=== PATIENT | female | born 1970 | race Caucasian/White ===

== ENCOUNTER → 2019-08-04 | Day surgery (SDC) | payer BC ==
[2019-08-02 08:20] VITALS: BMI 30.8
[~2019-08-04] MED LIST: LACTATED RINGERS 1,000 ML IV ONE; LACTATED RINGERS 1,000 ML IV SCH; LIDOCAINE 1% 20 ML VIAL (10MG/ML) FOR IV START INTRADERMA PRN; LIDOCAINE 1% INJ 10MG/ML (20 ML MDV) ONE; ONDANSETRON 4 MG/2 ML VIAL IVP ONE; PROPOFOL 10 MG/ML 20 ML VIAL IV ONE
[2019-08-04 10:23] VITALS: TEMP 97.7
--- NOTE | 2019-08-04 11:25 | P.PCN ---
Date of Procedure: 08/04/19 Procedure(s) Performed: Brief history: Patient is a pleasant 49-year-old white female scheduled for an elective upper endoscopy as well as colonoscopy as a part of evaluation of right-sided abdominal pain and change in bowel habits. Procedure performed: Esophagogastroduodenoscopy with biopsy Colonoscopy Preoperative diagnosis: Right-sided abdominal pain Change in bowel habits Anesthesia: MAC Procedure: After informed consent was obtained from the patient was brought into the endoscopy unit and IV sedation was administered by anesthesia under continuous monitoring. Initially upper endoscopy was done. The Olympus GF 160 video endoscope was inserted inserted into the mouth and esophagus intubated without any difficulty and was gradually advanced into the stomach and duodenum and carefully examined. The bulb and second part of the duodenum appeared normal. The scope was then withdrawn into the stomach adequately insufflated with air and upon careful examination the antrum had mild gastritis and biopsies were done from this area. The body, cardia and fundus appeared normal. In the proximal cardia of the stomach there were 2 small gastric polyps which were biopsied. The scope was then withdrawn into the esophagus. The GE junction was located at 40 cm to the incisors. It appeared regular with no erythema erosions or ulcerations. Rest of the esophagus appeared normal. Patient tolerated the procedure well. At this time the patient continued to remain sedation. Initial digital rectal examination was normal. Olympus CF 160 video colonoscope was then inserted into the rectum and gradually advanced to the cecum without any difficulty. Careful examination was performed as the scope was gradually being withdrawn. The prep was excellent. The cecum, ascending colon, transverse colon, descending colon, sigmoid colon and rectum appeared normal. Retroflexion was performed in the rectum and no lesions were noted. Patient tolerated the procedure well. Impression: 1. Upper endoscopy revealed small gastric polyps and mild antral gastritis 2. Colonoscopy was essentially within normal limits with no evidence of colitis or colorectal neoplasia Recommendations: Findings of this examination were discussed with the patient as well as her family. She was advised to follow with the biopsy results. Intermittent she will continue with her current medications use [id number] O osmotic laxatives as needed and she'll be seen in office in 3-4 weeks. She can have a repeat screening colonoscopy in 10 years.
[2019-08-04 11:42] VITALS: BP 116/79; PULSE 72; RESP 16
== END ==
LOC: ORWHC2ENDO 10:10
PROVIDERS: ATTEND Internal Medicine Gastroenterology
DX: K20.9 Esophagitis, unspecified (principal); K31.7 Polyp of stomach and duodenum; K29.50 Unspecified chronic gastritis without bleeding; Z90.710 Acquired absence of both cervix and uterus; Z88.0 Allergy status to penicillin; Z88.2 Allergy status to sulfonamides
CPT/HCPCS: 88305; 45378; 43239; J2405; J2001; J2704